=== PATIENT | female | born 1985 | race Caucasian/White ===

== ENCOUNTER 2018-03-30 16:00 | Emergency (ER) | payer SELFPAY ==
[2018-03-30 16:07] VITALS: BP 107/74; PULSE 106; TEMP 99.7; O2SAT 100
--- NOTE | 2018-03-30 16:24 | C.PDOC ---
History Of Present Illness 32 year old female presents to the ED complaining of bilateral earache that began yesterday. Patient denies ear discharge, change of hearing, or fever. She reports history of similar episodes in the past, she was given antibiotics PO and symptoms resolved. Patient denies recent swimming. Time Seen by Provider: 03/30/18 16:09 Chief Complaint (Nursing): ENT Problem History Per: Patient History/Exam Limitations: None Onset/Duration Of Symptoms: Days Current Symptoms Are (Timing): Still Present Quality (Ear): Pain W/Touch. denies: Discharge Symptoms Have Been: Episodic Past Medical History Reviewed: Historical Data, Nursing Documentation, Vital Signs Vital Signs: Last Vital Signs Temp 99.7 F H 03/30/18 16:06 Pulse 106 H 03/30/18 16:06 Resp 20 03/30/18 16:44 BP 107/74 03/30/18 16:06 Pulse Ox 100 03/30/18 18:33 - Medical History PMH: No Chronic Diseases Surgical History: No Surg Hx Family History: States: No Known Family Hx - Social History Hx Alcohol Use: No Hx Substance Use: No - Immunization History Hx Tetanus Toxoid Vaccination: No Hx Influenza Vaccination: No Hx Pneumococcal Vaccination: No Review Of Systems Except As Marked, All Systems Reviewed And Found Negative. Constitutional: Negative for: Fever ENT: Positive for: Ear Pain (B/L). Negative for: Ear Discharge, Other (hearing changes) Physical Exam - Physical Exam Appears: Well, Non-toxic, No Acute Distress Skin: Normal Color, Warm, Dry Head: Atraumatic, Normacephalic Eye(s): bilateral: Normal Inspection, PERRL, EOMI Ear(s): Left: TM Erythema, Bilateral: Other (? Opacified TM on right ; (+) erythema to b/l canal ; (-) Exudates in B/L ear canals, (+) Tragus Tenderness B/ L, no mastoid tenderness ) Nose: Normal Oral Mucosa: Moist Throat: Normal, No Erythema, No Exudate Neck: Normal ROM, Supple Lymphatic: Normal Exam Chest: Symmetrical Cardiovascular: Rhythm Regular Respiratory: Normal Breath Sounds, No Accessory Muscle Use, Other (Speaking full sentences ) Extremity: Normal ROM Neurological/Psych: Oriented x3, Normal Speech Gait: Steady ED Course And Treatment O2 Sat by Pulse Oximetry: 100 (RA) Pulse Ox Interpretation: Normal Progress Note: Patient given Motrin 400mg PO. On reevaluation patient reports feeling better. Patient given Rx for Amoxicillin and Corstiporin. Instructed to follow up with primary medical doctor or clinic in 2-3 days for further evaluation. Take medications as prescribed. Return to the emergency department at any time if symptoms persist or worsen. Disposition - Disposition Referrals: Onur Ross MD [Staff Provider] - Disposition: HOME/ ROUTINE Disposition Time: 16:22 Condition: STABLE Additional Instructions: Follow up with your primary medical doctor or clinic in 2-5 days for further evaluation. Take medications as prescribed. Return to the emergency department at any time if symptoms persist or worsen. Prescriptions: Amoxicillin 875 mg PO BID #14 tablet Neomycin/Polymyxin/Hydrocortis [Cortisporin Otic Susp] 4 drop OT TID #1 bottle Instructions: Outer Ear Infection (DC) Forms: [employer] Playbook (Arabic) - Clinical Impression Clinical Impression: Otitis externa - PA / CHEF DE FROID / Resident Statement MD/DO has reviewed & agrees with the documentation as recorded. - Scribe Statement The provider has reviewed the documentation as recorded by the Scribrony Murguia All medical record entries made by the Sharlene were at my direction and personally dictated by me. I have reviewed the chart and agree that the record accurately reflects my personal performance of the history, physical exam, medical decision making, and the department course for this patient. I have also personally directed, reviewed, and agree with the discharge instructions and disposition.
[2018-03-30 16:45] VITALS: RESP 20
== END 2018-03-30 16:44 | disposition home or self-care (01) ==
LOC: C.ER 16:00
DX: H60.93 Unspecified otitis externa, bilateral (principal)